=== PATIENT | female | born 1955 | race Two or more races ===

== ENCOUNTER 2021-09-19 19:04 | Emergency (ER) | payer OTHER ==
[~2021-09-19] VITALS: Ht 160 cm; Wt 74.8 kg
--- NOTE | 2021-09-19 20:05 | NUR ---
bibfamily c/o dog bite to left lower leg around 6:30pm unknow TDAP. AMBULATORY, PLACED ON BED, [id number]. AT BED SIDE
[2021-09-19] MEDS ORDERED: HYDROCODONE/APAP 5/325MG TABLET ONE (20:10)
[2021-09-19] MEDS ORDERED: LIDOCAINE 1%-EPI 1:100,000 20 ML VIAL ONE (20:10)
[2021-09-19] MEDS ORDERED: IBUPROFEN 600 MG TABLET ONE (20:10)
[2021-09-19] MEDS ORDERED: TDAP [DIPH/PERTUSSIS/TET] 0.5 ML VIAL IM ONE ×2 (20:11→20:30)
[2021-09-19] MEDS ORDERED: AMOX/CLAVULANATE 875 MG TABLET ONE (20:11)
[2021-09-19] MEDS ORDERED: AMOX/CLAVULANATE 875 MG TABLET PO ONE (20:30)
[2021-09-19] MEDS ORDERED: HYDROCODONE/APAP 5/325MG TABLET PO ONE (20:30)
[2021-09-19] MEDS ORDERED: LIDOCAINE 2%-EPI 1:100,000 30 ML VIAL TP ONE (20:30)
[2021-09-19] MEDS ORDERED: IBUPROFEN 600 MG TABLET PO ONE (20:30)
--- NOTE | 2021-09-19 21:40 | NUR ---
SUTURE DONE BY COLETTE GILL
[2021-09-19] MEDS ORDERED: IBUP-1957 PO (21:49)
[2021-09-19] MEDS ORDERED: AMOX-430 PO (21:49)
[2021-09-19] MEDS ORDERED: ONDANSETRON 4 MG TAB.RAPDIS ONE (22:00)
[2021-09-19] MEDS ORDERED: ONDANSETRON 4 MG TAB.RAPDIS SL ONE (22:00)
--- NOTE | 2021-09-19 22:10 | NUR ---
Patient discharged to home in stable condition. Written and verbal after care instructions given. Patient verbalizes understanding of instruction.
[2021-09-19 22:14] VITALS: BP 135/80
== END 2021-09-19 22:12 | disposition home or self-care (01) ==
LOC: ER 19:12
DX: S81.852A Open bite, left lower leg, initial encounter (principal); I10 Essential (primary) hypertension; Z88.8 Allergy status to other drugs, medicaments and biological substances; Z60.2 Problems related to living alone; W54.0XXA Bitten by dog, initial encounter; Y93.89 Activity, other specified; Y92.89 Other specified places as the place of occurrence of the external cause; Y99.8 Other external cause status
CPT/HCPCS: 12002; 90471; 90715; 99284; J3490; Q0162